=== PATIENT | female | born 1985 | race American Indian/Alaskan Native ===

== ENCOUNTER 2019-06-19 18:54 | Emergency (ER) | payer OTHER ==
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
[2019-06-19 22:53] VITALS: BP 121/82
== END 2019-06-19 22:39 | disposition home or self-care (01) ==
LOC: ED 18:54
DX: S16.1XXA Strain of muscle, fascia and tendon at neck level, initial encounter (principal); M25.561 Pain in right knee; M25.521 Pain in right elbow; M25.551 Pain in right hip; F17.200 Nicotine dependence, unspecified, uncomplicated; V09.9XXA Pedestrian injured in unspecified transport accident, initial encounter; Y93.89 Activity, other specified; Y92.488 Other paved roadways as the place of occurrence of the external cause; Y99.8 Other external cause status
CPT/HCPCS: 72040; 99283